=== PATIENT | female | born 1960 | race Caucasian/White ===

== ENCOUNTER 2018-02-02 14:12 | Emergency (ER) | payer MEDICAID, MEDICARE, OTHER ==
[~2018-02-02] VITALS: Ht 160 cm; Wt 60.0 kg
[2018-02-02] MEDS ORDERED: SODIUM CHLORIDE 0.9% 1,000 ML IV ONE ×2 (14:32→15:45)
[2018-02-02] MEDS ORDERED: ADENOSINE 3 MG/ML 2ML VIAL IV ONE ×3 (14:40→14:45)
[2018-02-02] MEDS ORDERED: LORAZEPAM 2MG/ML CPJ IV ONE (14:45)
[2018-02-02 15:24] LABS: CHLORIDE 105 mEq/L (98-107)
[2018-02-02 15:28] LABS: ETHANOL BLOOD < 10 mg/dL
[2018-02-02 15:30] LABS: BASOPHILS % 0.5 % (0.0-2.0); EOSINOPHILS % 0.7 % (0.0-5.0); HEMATOCRIT. 43.8 % (36.0-48.0); HEMOGLOBIN. 14.8 g/dL (12.0-16.0); LYMPHOCYTES % 43.3 % (20.0-50.0); MEAN CORPUSCULAR VOLUME 85.7 fL (81.0-99.0); MONOCYTES % 6.4 % (2.0-8.0); NEUTROPHILS % 49.1 % (40.0-76.0); PLATELET 311 x1000/uL (130-400); RED BLOOD CELL COUNT 5.11 mill/uL (4.2-5.4); RED CELL DISTRIBUTION WIDTH 14.1 % (11.6-14.6)
[2018-02-02] MEDS ORDERED: LORAZEPAM 1MG TABLET PO ONE (15:45)
[2018-02-02 16:20] VITALS: BP 115/78
[2018-02-02 17:06] LABS: *AMPHETAMINES SCREEN URINE NEGATIVE (NEGATIVE); *BARBITURATES SCREEN URINE NEGATIVE (NEGATIVE); *BENZODIAZEPINES SCREEN URINE NEGATIVE (NEGATIVE); *COCAINE SCREEN URINE NEGATIVE (NEGATIVE); METHADONE URINE SCREEN NEGATIVE (NEGATIVE); OPIATES URINE SCREEN NEGATIVE (NEGATIVE)
[2018-02-02 17:08] LABS: CANNABINOID URINE SCREEN NEGATIVE (NEGATIVE); PHENCYCLIDINE URINE SCREEN NEGATIVE (NEGATIVE)
== END 2018-02-02 18:00 | disposition home or self-care (01) ==
LOC: ER 14:12
DX: I47.1 Supraventricular tachycardia (principal); E78.00 Pure hypercholesterolemia, unspecified; I10 Essential (primary) hypertension; Z88.6 Allergy status to analgesic agent
CPT/HCPCS: 36415; 71045; 80053; 80305; 83880; 84484; 85025; 93005; 96374; 96375; 99284; G0482; J0153; J2060; J7030